=== PATIENT | male | born 1985 | race Caucasian/White ===

== ENCOUNTER 2016-11-14 02:23 | Emergency (ER) | payer MEDICAID ==
[~2016-11-14] VITALS: Ht 175.3 cm; Wt 93.2 kg
[2016-11-14 03:54] VITALS: BP 152/106
== END 2016-11-14 03:57 | disposition home or self-care (01) ==
LOC: ED 03:43
DX: R00.2 Palpitations (principal); F15.10 Other stimulant abuse, uncomplicated; F41.9 Anxiety disorder, unspecified; I10 Essential (primary) hypertension; E78.5 Hyperlipidemia, unspecified
CPT/HCPCS: 93005; 99283